=== PATIENT | male | born 1980 | race Caucasian/White ===

== ENCOUNTER → 2017-12-12 | Outpatient (CLI) | payer OTHER | LOC: FIMAGING 15:46 | PROVIDERS: ATTEND Orthopaedic Surgery | DX: S83.251A Bucket-handle tear of lateral meniscus, current injury, right knee, initial encounter (principal); S83.511A Sprain of anterior cruciate ligament of right knee, initial encounter; M95.8 Other specified acquired deformities of musculoskeletal system; M22.41 Chondromalacia patellae, right knee ==